=== PATIENT | male | born 2005 | race Two or more races ===

== ENCOUNTER 2024-09-20 12:54 | Outpatient (AMB) | payer OTHER, SELFPAY ==
--- NOTE | 2024-09-20 13:04 | MHC.PC.OV ---
Vital Signs 09/20/24 13:07 Height 5 ft 7.5 in Weight 308 lb BMI 47.5 BP 110/76 Blood Pressure Location Lt brachial Position Sitting Pulse 87 Pulse Source Pulse Oximeter Pulse Oximetry (%) 97 Oxygen Delivery Method Room Air Intake Visit Reasons: establish care Emergency Room Specialist Required: No Accompanied by: Self / Same As Patient Allergies No Known Allergies Allergy (Verified 09/20/24 13:24) Medication List - Last Reconciled 09/20/24 by ZACH Blackburn No Known Home Meds Tobacco use date assessed: 09/20/24 Dental Screening Dental Screen Date: 09/20/24 Did you have a dental visit in the last 12 months?: No Did you have a dental problem in the last 6 months where you did not have access to dental care?: No Was dental information given to patient?: No HPI establish care HPI Details Previous PCP: Procurement Professional Last visit: over year ago Last PE: probably 4 years Specialist:no OBGYN:n/a Past medical history: none reported Medications:no Family HX: DM father Problem: The patient is a 19-year-old male accompanied by his father Patient is presenting to establish care He is concerned about multiple skin areas Skin rashes on bilateral chest including around the nipple areas Patient reports that these areas are itchy at times Patient also concerned about strong odor/moisture coming from his groin areas On inspection: Red, scaly patches consistent with fungal rash on right and left chest underneath breasts folds Groins-Reading and moist and odorous- Discussed with patient about cleansing ear with soap and water and pat dry before applying nystatin powder to the groin areas Clotrimazole-betamethasone topical b.i.d. to chest and abdomen areas [facility] Family History (Updated 09/22/24 @ 01:44 by ZACH Blackburn) Father Diabetes Social History Housing: House Patient Tobacco Use Status: Never used Tobacco e-Cigarette/Vaping Use: Never Used Second Hand Smoke Exposure: No service: No Current occupational status: unemployed Current occupational exposures/hazards: No Cognitive needs: No Hearing needs: No Vision needs: No Questionnaire PHQ-9 Over the last 2 weeks, how often have you been bothered by any of the following problems? 1. Little interest or pleasure in doing things: several days 2. Feeling down, depressed, or hopeless: several days 3. Trouble falling or staying asleep, or sleeping too much: not at all 4. Feeling tired or having little energy: not at all 5. Poor appetite or overeating: not at all 6. Feeling bad about yourself - or that you are a failure or have let yourself or your family down: not at all 7. Trouble concentrating on things, such as reading the newspaper or watching television: not at all 8. Moving or speaking so slowly that other people could have noticed. Or the opposite - being so fidgety or restless that you have been moving around a lot more than usual: not at all 9. Thoughts that you would be better off or of hurting yourself in some way: not at all Total score: 2 Source: Developed by Drs. Kerwin Nathan, Eileen Stein, Festus Santamaria and colleagues, with an educational juan ramon from [employer]. Thrive Questionnaire Date Thrive assessed: 09/20/24 I am a: Patient What is your living situation today?: I have a steady place to live Within the past 12 months, did the food you bought not last and you didn't have the money to get more?: Never true Within the past 12 months, did you worry whether your food would run out before you got money to buy more?: Never true Do you have trouble paying for medicines?: No Do you have trouble getting transportation to medical appointments?: No Do you have trouble paying your heating and electricity bill?: No Do you have trouble taking care of your child, family member or friend?: No Do you have trouble with day-to-day activities such as bathing, preparing meals, shopping, managing finances, etc.?: No Are you currently unemployed and looking for a job?: Yes Are you interested in more education?: No Please select the resources that you would like help with: None Currently or been in a relationship where the following occur: No concerns reported THRIVE Score: 0 AUDIT C Alcohol Use Questionnaire (AUDIT-C) 1. How often do you have a drink containing alcohol?: Never 2. How many drinks containing alcohol do you have on a typical day when you are drinking?: 1 or 2 3. How often do you have six or more drinks on one occasion?: Never Total Score: 0 MARCIE-7 AMB Questionnaire MARCIE-7 Date MARCIE - 7 assessed: 09/20/24 Feeling nervous, anxious, or on edge: 0 = Not at all Not being able to stop or control worryin = Not at all Worrying too much about different things: 0 = Not at all Trouble relaxin = Not at all Being so restless that it is hard to sit still: 0 = Not at all Becoming easily annoyed or irritable: 1 = Several days Feeling afraid as if something awful might happen: 0 = Not at all Total MARCIE-7 score (0-4 normal; 5-9 mild; 10-14 moderate; 15-21 severe): 1 Source: Developed by Drs. Kerwin Nathan, Eileen Stein, Festus Santamaria and colleagues, with an educational juan ramon from [employer]. MARCIE-7 Assessment Billing MARCIE-7 Assessment Tool: MARCIE-7 Assessment 56772 Review of Systems Const Details: Denies chills, Denies fatigue, Denies fever(s), Denies headache(s) and Denies weakness HEENT Denies change in vision, Denies dizziness, Denies headache(s), Denies hearing loss, Denies nasal congestion, Denies sinus pain, Denies sinus pressure and Denies sore throat Card Denies chest pain, Denies lightheadedness, Denies dyspnea and Denies other (palpitations) Resp Denies cough, Denies dyspnea and Denies wheezing GI Denies abdominal pain, Denies melena, Denies hematochezia, Denies change in bowel habits, Denies dyspepsia and Denies nausea Denies hematuria and Denies dysuria Musc Denies abnormal gait, Denies myalgias, Denies arthralgias, Denies numbness and Denies tingling Skin/Breast Denies rash, Denies unusual bruising and Denies wounds Neuro Denies abnormal gait, Denies dizziness, Denies headache(s), Denies memory loss, Denies numbness, Denies Sensory deficit (Neuro), Denies tingling and Denies weakness Psych Denies anxiety, Denies depression and Denies memory loss Endo Denies cold intolerance, Denies fatigue, Denies heat intolerance, Denies polydipsia and Denies polyuria Dustin/Lymph Denies easy bleeding and Denies easy bruising Aller/Immun Denies wheezing Physical exam (Primary Care) Vital Signs: Last Vital Signs Pulse 87 09/20/24 13:07 BP 110/76 09/20/24 13:07 Pulse Ox 97 09/20/24 13:07 Oxygen Delivery Method Room Air 09/20/24 13:07 BMI result Body Mass Index 47.5 Tobacco/Smoking Status: Tobacco use Status Tobacco use date assessed 09/20/24 09/20/24 13:10 Patient Tobacco Use Status Never used Tobacco 09/20/24 13:10 e-Cigarette/Vaping Use Never Used 09/20/24 13:10 PHQ-9: PHQ-9 Score PHQ-9: Total score 2 09/20/24 13:32 Thrive Assessment: Date of Thrive Assessment Date Thrive assessed 09/20/24 09/20/24 13:10 Currently or been in a relationship where the following occur: No concerns reported Const Other: General: no acute distress, well developed, alert and awake Nutritional Appearance: well nourished Orientation/consciousness: patient oriented x3 HENMT Head: Yes normocephalic and Yes atraumatic Ears: hearing grossly normal bilaterally and TM's normal bilaterally General nose exam: Normal external nose present and Normal nares present Mouth: Normal oral and palatal mucosa present and moist mucous membranes Eyes Pupils: Equal, round and reactive pupils present and Pupil accommodation reflex normal EOM: EOMs intact bilaterally Neck Neck: Yes normal visual inspection, Yes no lymphadenopathy and Yes trachea midline Thyroid: Thyroid normal Lymphatic: no lymphadenopathy noted Resp Effort & Inspection: normal respiratory effort Auscultation: clear to auscultation bilaterally Cardio Rate: regular rate Rhythm: regular rhythm Heart sounds: S1 normal heart sound present, S2 normal heart sound present, no gallops, no murmurs and no rubs Bruits: no abdominal aortic bruits and no carotid bruits GI Palpation (GI): Abdomen large, rounded, soft and nontender to palpation Auscultation: normal bowel sounds General: Yes no CVA tenderness Back/Spine/Pelvis Back: no CVA tenderness Cervical Spine: cervical ROM normal and No Cervical spine tenderness Thoracic/Lumbar Spine: thoraco-lumbar ROM normal, No pain with thoraco-lumbar ROM, No thoracic spinal tenderness and No lumbar spinal tenderness Skin General: warm and dry. Normal skin color. Normal skin turgor See HPI Nails: normal Neuro General: patient oriented x3, gait normal Cranial nerves: Yes Equal, round and reactive pupils present Cognition (Neuro): normal cognition Gait exam (Neuro): Normal gait present Extrem General: Yes normal to inspection, No edema and No calf tenderness Psych Appearance: grossly normal Affect: normal affect Attitude: cooperative Thought process: Normal thought process present Coding Level of Care Code New Pt Level 3 (44900) Diagnoses Tinea corporis B35.4 Tinea cruris B35.6 Additional Codes MARCIE-7 Assessment Billing - MARCIE-7 Assessment Tool: MARCIE-7 Assessment 64617 ([id number]) Time Spent (min) 31 Assessment & Plan Assessment & Plan (1) Tinea corporis: Code(s): B35.4 - Tinea corporis Category: Medical Plan: Clotrimazole-betamethasone 1-0.05% 1 appl topical BID ordered to be applied to affected areas on chest and abdomen (2) Tinea cruris: Code(s): B35.6 - Tinea cruris Category: Medical Plan: Nystatin powder ordered for groin areas. Discussed with patient about cleansing with area with soap and water, pat dry before apply the nystatin powder Orders: Orders Lipid Panel 09/20/24 Z00.00 - Encounter for general adult medical examination without abnormal findings Glucose Fasting 09/20/24 Z00.00 - Encounter for general adult medical examination without abnormal findings Complete Blood Count Auto Diff 09/20/24 Z00.00 - Encounter for general adult medical examination without abnormal findings Comprehensive Fletcher. Panel Fast 09/20/24 Z00.00 - Encounter for general adult medical examination without abnormal findings Vitamin D 25-OH Total 09/20/24 Z00.00 - Encounter for general adult medical examination without abnormal findings UA CC w/rflx Micro + Cult 09/20/24 Z00.00 - Encounter for general adult medical examination without abnormal findings TSH reflex Free T4 09/20/24 Z00.00 - Encounter for general adult medical examination without abnormal findings Medications: New clotrimazole-betamethasone 1-0.05 % 1 appl topical BID 45 grams 3RF nystatin 1 appl topical BID 60 grams 3RF
[2024-09-20 13:07] VITALS: BP 110/76; PULSE 87; O2SAT 97; BMI 47.5
--- OUTSIDE RECORDS SUMMARY | 2024-09-20 13:49 | XMS_ITS | Data Portability ---
Author Organization [facility] [address] Address [address] [place] [address] Assessment No assessment recorded. Plan of Treatment Reminders Order Date Submit Date Provider Last Modified By Organization Details Last Modified Time Details Appointments None recorded. Lab rapid flu (A+B) 2021 [email or web address], [address] [place] [address], [id number], 15:42:41 Referral None recorded. Procedures None recorded. Surgeries None recorded. Imaging None recorded. Medication Orders oseltamivir [address] [facility][id number], [address] [place] [address], [address], 15:42:44 benzonatate [address] [id number], [address] [place], [address], 15:42:44 Patient TargetsNo targets recorded. Patient Instructions Encounter Date Encounter Id Patient Instructions Last Modified By Organization Details Last Modified Time 07/10/2022 [id number] influenza (flu): care instructions [email or web address] Not available 07/10/2022 15:42:41 Based on your Presentation and Exam you are being diagnosed with Influenza. Your rapid Flu test was POSITIVE Influenza is caused by a virus that is highly contagious. If you have any family member that have been exposed they typically will start to show symptoms in 48-72 hours. I am going to prescribe you Tamiflu - which has to be started within 48 hours to be effective. If it is started after that time it typically can cause GI symptoms. If family member show symptoms, remember that treatment has to be started within 48 hours. You are considered contagious for 5 Days after the start of the fever. You should isolate and not go to work, sports, events during this quarantine period. The following are my recommendations to help with your symptoms while your body fights this infection: 1. Take Ibuprofen or Tylenol if you do not have any allergies to these medications. If you take a blood thinner you should not take NSAIDS like Ibuprofen. These medication will help with the inflammation in your respiratory tract which should help the cough. 2. Do not take any decongestants at this time because this will dry out that tract too much. If you have a lot of nasal congestion you can try nasal decongestants, but I would not take them more than 5 days. 3. Use a humidifier or add a cup of water by your bed. Sometimes if our sleeping environment is too dry this can lead to cough 4. Salt Water Gargles 5. Saline nasal spray is helpful. 6. Would recommend taking a antihistamine to help with the congestion. 7. Clean Surfaces regularly and try to stay isolated from family members. I would be seen again if you develop any of the following. 1. Cough develops last longer than 3 weeks. 2. Develop shortness of breath or wheezing. 3. Severe Headache with vision changes 4. Stiff Neck 5. Fever does not reduce a few points with Ibuprofen or Tylenol. I would go immediately to the Emergency Room if you develop: 1. Chest Pain 2. Severe Shortness of breath 3. Coughing up Blood. Not available 07/10/2022 15:39:13 Reason for Referral None Reported. Results Created Date Observation Date Name Description Value Unit Range Abnormal Flag Note LastModifiedBy Organization Detail LastModifiedTime 07/10/20 22 07/10/2022 rapid flu (A+B) Unknown Analyte positi ve Not Available [facility] [address] [place] [address], [id number], 07/10/2022 14:52:41 07/10/20 22 07/10/2022 rapid flu (A+B) Unknown Analyte negati ve Not Available carol germain [address], [address], 07/10/2022 14:52:41 07/10/20 22 07/10/2022 rapid flu (A+B) Unknown Analyte Normal = Negati ve Not Available 2099carol germain [address], [address], 07/10/2022 14:52:41 07/10/20 22 07/10/2022 rapid flu (A+B) Unknown Analyte Normal = Negati ve Not Available 2099carol [address], [address], 07/10/2022 14:52:41 Result Notes None recorded. Problems No Known Problems Medical Equipment None Reported. Allergies No known drug allergies Medications Name Sig Start Date Stop Date Status Note LastModified by Organization Details LastModified Time benzonatate 200 mg capsule Take 1 capsule 3 times a day by oral route. 2021 active Not Available Not Available Not Avai lable ofloxacin 0.3 % ear drops INSTILL 10 DROPS TO AFFECTED EAR(S) 1 TIME PER DAY X7 DAYS FOR INFECTION 07/10 completed Not Available Not Available Not Available oseltamivir 75 mg capsule Take 1 capsule twice a day by oral route for 5 days. 2021 active Not Available Not Available Not Avai lable Vitals Date Recorded Body height Body mass index (BMI) Body mass index (BMI) Percentile per age and sex Body weight Body temperature Respiratory rate Heart rate Oxygen saturation Oxygen saturation in Arterial blood by Pulse oximetry Systolic blood pressure Diastolic blood pressure Provider Name and Address Organization Details Last Updated DateTime 2 170.18 cm 46.5 kg/m2 99 % 386629. 93 g 98 [degF] 20 /min 94 /min 96 % 96 % 135 mm[Hg] 82 mm[Hg] JOHN Michele [place] - [facility] 2 14:52:36 Social History Question Answer Notes LastModified by Organizat ion Details LastModified Time Tobacco Smoking Status Never Smoker JOHN portillo [place] - [facility] 07/10/2022 14:50:34 What Is Your Level Of Alcohol Consumption? None Information not available 07/10/2022 What Is Your Water Source? City Information not available 07/10/2022 What Is Your Heat Source? Other Information not available 07/10/2022 Have You Had Direct Contact, Or Contact During Intimacy, With Monkeypox Rash, Scabs, Or Body Fluids From A Person With Monkeypox? No Information not available 07/10/2022 Do You Use Any Illicit Or Recreational Drugs? No Information not available 07/10/2022 Have You Recently Traveled Abroad? No Information not available 07/10/2022 Do You Or Have You Ever Used Any Other Forms Of Tobacco Or Nicotine? No Information not available 07/10/2022 Sex: Unknown Functional Status None recorded. Mental Status None recorded. Family History Relationship Description Onset Age of this Age Resolved Age Notes LastModified by Organization Details LastModified Time Father No current problems or disability Not available 14:50:25 Mother No current problems or disability Not available 14:50:25 Medical History No medical history recorded. Past Encounters Encounter ID Performer Location Encounter Start Date Encounter Closed Date Diagnosis/Indication Diagnosis SNOMED-CT Code Diagnosis ICD10 Code [id number] [facility] [address] [place] [address] 01/20/2022 16:25:33 01/20/2022 16:49:16 [id number] [facility] [address] [address] [place] [address] 07/10/2022 11:54:18 07/10/2022 15:50:10 Influenza caused by Influenza A virus 295495784 J09.X2 Health Concerns Section Related Observation LastModified by Organization Detai ls LastModified Time None Recorded Concern Status LastModified by Organization Details LastModified Time None Recorded Advance Directives Directive None Recorded Payers Encounter Date Sequence Insurance Name Policy Number Policy Vázquez Covered Member ID Vázquez Member ID Guarantor Name 01/20/2022 1 [facility] [id number] Ryan Hurst [id number] Ryan Hurst 07/10/2022 1 [facility] [id number] Ryan Hurst [id number] Ryan Hurst Notes Date Note Type Note Provider Name and Address Organization Details Recorded Time 07/10/2022 text/html Sinus ComplaintsReported bypatient.Location:faci al pain Associated Symptoms:nasal discharge from nostrils;fever/chills;s ore throat;Post nasal drip;cough Onset/Timing:initially started 2days ago Quality:worsening Severity:moderate Context:no recent upper respiratory infection;recent sick contacts Alleviating factors:OTC meds ibuprophenNotes:Goes to [facility]. Having congestion, headache, fatigue, bodyaches. Probably has had exposure to covid and flu. [facility] OSE[facility] [address] [place], [address], [place] - [facility] 07/10/2022 15:45:53
== END 2024-09-20 13:52 | disposition home or self-care (01) ==
PROVIDERS: PCP Pediatrics
DX: B35.4 Tinea corporis (principal); B35.6 Tinea cruris

== ENCOUNTER → 2024-09-20 12:54 | Outpatient (BNVA) | payer OTHER, SELFPAY | PROVIDERS: PCP Pediatrics | DX: B35.4 Tinea corporis (principal); B35.6 Tinea cruris | CPT/HCPCS: 96127 ==

== ENCOUNTER 2024-10-05 12:01 | Outpatient (REF) | payer OTHER, SELFPAY ==
[2024-10-05 12:59] LABS: MANUAL DIFF FLAG NO
[2024-10-05 13:00] LABS: Appearance Urine Turbid; Color Urine Dark Yellow; Glucose Urine UA Negative (Negative); Leukocyte Esterase Urine Negative (Negative); Nitrite Urine Negative (Negative); Specific Gravity - Urine >= 1.030 (1.005-1.025); Urine Blood Negative (Negative); Urine Ketones Trace mg/dL (Negative); Urine Protein Trace mg/dL (Neg-Trace)
[2024-10-05 13:01] LABS: Basophils Percent Auto 0.6 % (0-2); Eosinophils Absolute Auto 0.1 X10*3/uL (0.0-0.4); Eosinophils Percent Auto 1.7 % (0-4); Hematocrit 47.1 % (42.0-52.0); Hemoglobin 15.1 g/dl (14.0-18.0); Imm Gran Abs Auto 0.01 X10*3/uL (0.00-0.03); Imm Gran Pct Auto 0.2 % (0.0-0.4); Lymphocytes Absolute Auto 3.1 X10*3/uL (1.2-4.9); Lymphocytes Percent Auto 45.9 % (20-40); Mean Corpuscular HGB Conc 32.1 g/dl (31.0-36.0); Mean Corpuscular Volume 84.1 fL (80.0-98.0); Mean Platelet Volume 11.9 fL (9.4-12.4); Monocytes Absolute Auto 0.5 X10*3/uL (0.1-1.2); Monocytes Percent Auto 7.7 % (2-11); Neutrophils Absolute Auto 2.9 x10*3/uL (2.0-8.3); Neutrophils Percent Auto 43.9 % (45-73); Platelet Count 190 X10*3/uL (160-400); Red Cell Distribution Width 13.1 % (11.0-16.0); White Blood Count 6.6 X10*3/uL (4.8-10.8)
[2024-10-05 13:20] LABS: Alanine Aminotransferase 58 U/L (0-40); Albumin Level 4.3 g/dL (3.5-5.0); Anion Gap 13 (12-20); Aspartate Amino Transferase 34 U/L (5-37); Bilirubin Total 0.8 mg/dL (0.0-1.0); Blood Urea Nitrogen 14 mg/dL (9-16); Carbon Dioxide 26 mmol/L (22-29); Chloride 104 mmol/L (96-108); Cholesterol 182 mg/dL (<200); Estimated Glomerular Filt Rate > 60; Glucose Fasting 90 mg/dL (60-99); HDL Cholesterol 44 mg/dL (>40); LDL Cholesterol Calculated 121 mg/dL (<100); Potassium 5.1 mmol/L (3.3-5.1); Sodium 138 mmol/L (135-145); Total Protein 8.4 g/dL (6.5-8.0); Triglycerides 89 mg/dL (<150)
--- OUTSIDE RECORDS SUMMARY | 2024-10-05 13:50 | XMS_ITS | Data Portability ---
Author Organization [facility], [address] Address [address] [place] [address] Assessment No assessment recorded. Plan of Treatment Reminders Order Date Submit Date Provider Last Modified By Organization Details Last Modified Time Details Appointments None recorded. Lab rapid flu (A+B) 2021 [email or web address] [facility], [address] [place] [address], [phone], 15:42:41 Referral None recorded. Procedures None recorded. Surgeries None recorded. Imaging None recorded. Medication Orders oseltamivir 75 mg capsule 2021 [facility] #[id number], [address] [place] [address], [address], 15:42:44 benzonatate 200 mg capsule 2021 [facility]2339, [address] [place], [address], 15:42:44 Patient TargetsNo targets recorded. Patient Instructions Encounter Date Encounter Id Patient Instructions Last Modified By Organization Details Last Modified Time 07/10/2022 [id number] influenza (flu): care instructions [email or web address] Not available 07/10/2022 15:42:41 Based on your [...] Shortness of breath 3. Coughing up Blood. [email or web address] Not available 07/10/2022 15:39:13 Reason for Referral None Reported. Results Created Date Observation Date Name Description Value Unit Range Abnormal Flag Note LastModifiedBy Organization Detail LastModifiedTime 07/10/20 22 07/10/2022 rapid flu (A+B) Unknown Analyte positi ve Not Available [facility] [address] [place] [address], [phone], 07/10/2022 14:52:41 07/10/20 22 07/10/2022 rapid flu (A+B) Unknown Analyte negati ve Not Available carol germain [address], [address], 07/10/2022 14:52:41 07/10/20 22 07/10/2022 rapid flu (A+B) Unknown Analyte Normal = Negati ve Not Available 2099carol germain [address], [address], 07/10/2022 14:52:41 07/10/20 22 07/10/2022 rapid flu (A+B) Unknown Analyte Normal = Negati ve Not Available 2099carol [address], [address], 07/10/2022 14:52:41 Result Notes None recorded. Problems [...] 2 170.18 cm 46.5 kg/m2 99 % 867475. 93 g 98 [degF] 20 /min 94 [...] SNOMED-CT Code Diagnosis ICD10 Code Diagnosis Note [id number] [facility] [address] [place] [address] 01/20/2022 16:25:33 01/20/2022 16:49:16 [id number] [facility] [address] [facility] [address] [place] [address] 07/10/2022 11:54:18 07/10/2022 15:50:10 Influenza caused by Influenza A virus [id number] J09.X2 Health Concerns Section Related Observation LastModified by Organization Detai ls LastModified Time None Recorded Concern Status LastModified by Organization Details LastModified Time None Recorded Advance Directives Directive None Recorded Payers Encounter Date Sequence Insurance Name Policy Number Policy Vázquez Covered Member ID Vázquez Member ID Guarantor Name 01/20/2022 1 [facility] [id number] Ryan Hurst [id number] Ryan Hurst 07/10/2022 1 [facility] [id number] Ryan Hurst [id number] Ryan Hurst Notes Date Note Type Note Provider Name and Address Organization Details Recorded Time 07/10/2022 text/html Sinus ComplaintsReported bypatient.Location:faci al pain Associated Symptoms:nasal discharge from nostrils;fever/chills;s ore throat;Post nasal drip;cough Onset/Timing:initially started 2days ago Quality:worsening Severity:moderate Context:no recent upper respiratory infection;recent sick contacts Alleviating factors:OTC meds ibuprophenNotes:Goes to [facility]. Having congestion, headache, fatigue, bodyaches. Probably has had exposure to covid and flu. [facility] OSEGUERA [address] [place], [address], [place] - [facility] 07/10/2022 15:45:53
[2024-10-05 14:03] LABS: TSH reflex Free T4 2.87 uIU/mL (0.32-4.0); Vitamin D 25-OH Total 16.7 ng/mL (>30)
[2024-10-05 15:50] LABS: Alkaline Phosphatase 84 U/L (39-117)
== END 2024-10-05 12:02 | disposition home or self-care (01) ==
LOC: HO.10HDL 12:01
DX: Z00.00 Encounter for general adult medical examination without abnormal findings (principal); Z13.6 Encounter for screening for cardiovascular disorders
CPT/HCPCS: 36415; 80053; 80061; 81003; 82306; 84443; 85025

== ENCOUNTER 2024-10-15 14:16 | Outpatient (AMB) | payer OTHER, SELFPAY ==
[2024-10-15 14:27] VITALS: BP 122/80; PULSE 84; TEMP 36.3; O2SAT 97; BMI 47.7
--- NOTE | 2024-10-15 14:27 | A.OFFPC_ITS ---
Vital Signs 10/15/24 14:27 Height 5 ft 7.5 in Weight 309 lb 6 oz BMI 47.7 BP 122/80 Blood Pressure Location Lt brachial Position Sitting Pulse 84 Pulse Source Pulse Oximeter Temp 97.3 F Temp Source Temporal Artery Scan Pulse Oximetry (%) 97 Oxygen Delivery Method Room Air Intake Visit Reasons: Annual Exam Intake Note: Patient is here today for a physical. Coil Strapper Required: No Accompanied by: Father Allergies No Known Allergies Allergy (Verified 10/15/24 15:10) Medication List - Last Reconciled 10/15/24 by ZACH Blackburn clotrimazole-betamethasone 1-0.05 % 1 appl topical BID nystatin 1 appl topical BID Tobacco use date assessed: 09/20/24 Dental Screening Dental Screen Date: 09/20/24 HPI Annual Exam HPI Details The patient is a 19-year-old male presenting for annual physical. He is accompanied by his father Dentist: no-will make an appointment Eye: Snellen: Right: Left: Corrected vision: no-will make an appointment STI screening: Colonoscopy:n/a Pap Smer:n/a PHQ-9: Flu:decline COVID: decline Tdap: up to date Diet: regular Exercise: no left ear perforation: history of tubes will get vit D3 2000 iu otc [facility] Medical History (Updated 10/15/24 @ 22:10 by ZACH Blackburn) History of ear infections as a child Surgical History History of placement of ear tubes Family History Father Diabetes Social History Housing: House Patient Tobacco Use Status: Never used Tobacco e-Cigarette/Vaping Use: Never Used Second Hand Smoke Exposure: No service: No Current occupational status: unemployed Current occupational exposures/hazards: No Cognitive needs: No Hearing needs: No Vision needs: No Questionnaire Thrive Questionnaire Date Thrive assessed: 10/15/24 I am a: Patient What is your living situation today?: I have a steady place to live Within the past 12 months, did the food you bought not last and you didn't have the money to get more?: Never true Within the past 12 months, did you worry whether your food would run out before you got money to buy more?: Never true Do you have trouble paying for medicines?: No Do you have trouble getting transportation to medical appointments?: No Do you have trouble paying your heating and electricity bill?: No Do you have trouble taking care of your child, family member or friend?: No Do you have trouble with day-to-day activities such as bathing, preparing meals, shopping, managing finances, etc.?: No Are you currently unemployed and looking for a job?: Yes Are you interested in more education?: No Please select the resources that you would like help with: None Currently or been in a relationship where the following occur: No concerns reported THRIVE Score: 0 AUDIT C Alcohol Use Questionnaire (AUDIT-C) 1. How often do you have a drink containing alcohol?: Never 2. How many drinks containing alcohol do you have on a typical day when you are drinking?: 1 or 2 3. How often do you have six or more drinks on one occasion?: Never Total Score: 0 MARCIE-7 AMB Questionnaire MARCIE-7 Date MARCIE - 7 assessed: 10/15/24 Feeling nervous, anxious, or on edge: 0 = Not at all Not being able to stop or control worryin = Not at all Worrying too much about different things: 0 = Not at all Trouble relaxin = Not at all Being so restless that it is hard to sit still: 0 = Not at all Becoming easily annoyed or irritable: 1 = Several days Feeling afraid as if something awful might happen: 0 = Not at all Total MARCIE-7 score (0-4 normal; 5-9 mild; 10-14 moderate; 15-21 severe): 1 Source: Developed by Drs. Kerwin Nathan, Eileen Stein, Festus Santamaria and colleagues, with an educational juan ramon from [employer]. Review of Systems Const Denies headache(s) Eyes Denies loss of vision ENT Denies vertigo, Denies dizziness, Denies headache(s) and Denies sore throat Card Denies chest pain, Denies leg edema and Denies lightheadedness Resp Denies cough, Denies hemoptysis and Denies wheezing GI Denies abdominal pain, Denies melena, Denies constipation, Denies diarrhea and Denies vomiting Denies dysuria, Denies urinary frequency and Denies urinary urgency Musc Denies arthralgias, Denies joint swelling, Denies numbness and Denies tingling Skin/Breast Reports pruritus, Reports erythema (underneath skin folds-improved significantly since last seen) and Reports rash (underneath skin folds-improved significantly) Neuro Denies Abnormal speech present, Denies behavioral changes, Denies vertigo, Denies dizziness, Denies headache(s), Denies loss of vision, Denies memory loss, Denies numbness and Denies tingling Psych Denies anxiety, Denies behavioral changes, Denies depression, Denies memory loss and Denies panic attacks Dustin/Lymph Denies easy bleeding and Denies easy bruising Aller/Immun Denies wheezing Physical exam (Primary Care) Vital Signs: Last Vital Signs Temp 97.3 F 10/15/24 14:27 Pulse 84 10/15/24 14:27 BP 122/8 L 10/15/24 14:27 Pulse Ox 97 10/15/24 14:27 Oxygen Delivery Method Room Air 10/15/24 14:27 BMI result Body Mass Index 47.7 Tobacco/Smoking Status: Tobacco use Status Tobacco use date assessed 09/20/24 10/15/24 14:28 Patient Tobacco Use Status Never used Tobacco 10/15/24 14:28 e-Cigarette/Vaping Use Never Used 10/15/24 14:28 Thrive Assessment: Date of Thrive Assessment Date Thrive assessed 10/15/24 10/15/24 14:28 Currently or been in a relationship where the following occur: No concerns reported Const General: healthy appearing, no acute distress, alert and awake Nutritional Appearance: well nourished Orientation/consciousness: oriented to person, oriented to place and oriented to time HENMT Ears: TM normal on the left and TM abnormal perforated (hx of tubes) General nose exam: Normal nasal mucous membranes and turbinates present Eyes Conjunctivae: conjunctivae normal Sclerae: sclerae normal Pupils: Equal, round and reactive pupils present Neck Neck: Yes no lymphadenopathy and Yes no JVD Thyroid: Thyroid normal Carotids: no bruits Resp Effort & Inspection: normal respiratory effort and not tachypneic Auscultation: no crackles, no rales, no rhonchi and no wheezes Cardio Rate: regular rate Rhythm: regular rhythm Heart sounds: no murmurs and normal S1 and S2 GI Palpation (GI): Soft to palpation, nontender, no hepatomegaly and no splenomegaly Auscultation: normal bowel sounds Skin General skin exam: no rashes or lesions noted and dry skin Neuro General: oriented to person, oriented to place and oriented to time Cranial nerves: Yes Equal, round and reactive pupils present Speech: No Abnormal speech present Gait exam (Neuro): Normal gait present Motor exam (neuro): no tremor noted Extrem Right upper extremity: full ROM Left upper extremity: full ROM Right lower extremity: full ROM; no edema Left lower extremity: full ROM; no edema Psych Mental Status: mental status grossly normal Speech and movement: Normal speech and movement present Affect: normal affect Attitude: cooperative Thought process: Normal thought process present Results Reviewed Results Reviewed: Laboratory Tests 10/05/24 12:06 WBC 6.6 RBC 5.60 Hgb 15.1 Hct 47.1 Plt Count 190 Neut % (Auto) 43.9 L Lymph % (Auto) 45.9 H Sodium 138 Potassium 5.1 Chloride 104 BUN 14 Creatinine 0.90 Estimated GFR > 60 Fasting Glucose 90 AST 34 ALT 58 H Alkaline Phosphatase 84 Triglycerides 89 Cholesterol 182 LDL Cholesterol, Calc 121 H HDL Cholesterol 44 25-OH Vitamin D Total 16.7 L TSH 2.87 Urine Color Dark Yellow Urine Appearance Turbid Urine pH 6.0 Ur Specific [place] >= 1.030 H Urine Protein Trace Urine Glucose (UA) Negative Urine Ketones Trace Urine Blood Negative Urine Nitrite Negative Ur Leukocyte Esterase Negative Coding Level of Care Code Est Pt Prev Care 18-39y([id number]) Diagnoses Annual physical exam Z00.00 Elevated ALT measurement R74.01 Pure hypercholesterolemia E78.00 Tinea cruris B35.6 Tinea corporis B35.4 Morbid obesity with BMI of 45.0-49.9, adult E66.01; Z68.42 Vitamin D deficiency E55.9 Time Spent (min) 35 Assessment & Plan Assessment & Plan (1) Annual physical exam: Code(s): Z00.00 - Encounter for general adult medical examination without abnormal findings Category: Medical Plan: Preventative guidelines and recent blood work were reviewed with the patient. The patient is not up to date on dental/eye exam evaluation-Discussed with the patient and his father about the recommendations. Declines flu/covid vaccines. (2) Elevated ALT measurement: Code(s): R74.01 - Elevation of levels of liver transaminase levels Category: Medical Plan: AST 34/ALT 58 Avoid tylenol, alcohol, discussed with the patient that his elevated cholesterol could be the contributor for the elevation of his ALT. Cutting down on high cholesterol foods, losing weight and increasing his activity levels can benefit the liver function (3) Pure hypercholesterolemia: Code(s): E78.00 - Pure hypercholesterolemia, unspecified Category: Medical Plan: Encouraged to exercise for at least 30 minutes a day/5 days a week Healthy eating discussed. Encouraged to eat fruits/vegetables, protein- fish/baked chicken, and to avoid salty/fried foods, sweets, caffeine and carbohydrates. Encouraged to increase water intake 6-8 glasses a day (4) Tinea cruris: Code(s): B35.6 - Tinea cruris Category: Medical Plan: Nystatin powder ordered for groin areas. Discussed with patient about cleansing with area with soap and water, pat dry before apply the nystatin powder (5) Tinea corporis: Code(s): B35.4 - Tinea corporis Category: Medical Plan: Clotrimazole-betamethasone 1-0.05% 1 appl topical BID ordered to be applied to affected areas on chest and abdomen (6) Morbid obesity with BMI of 45.0-49.9, adult: Code(s): E66.01 - Morbid (severe) obesity due to excess calories; Z68.42 - Body mass index [BMI] 45.0-49.9, adult Category: Medical Plan: Discussed macronutrients and cutting simple and flour based carbs from the diet and increasing vegetables and good proteins and fats. Discussed exercising 3-5 days a week for at least 30 minutes to help boost metabolism and maintain strong muscles to maintain weight. (7) Vitamin D deficiency: Code(s): E55.9 - Vitamin D deficiency, unspecified Category: Medical Plan: Recommended vitamin D3 2000 iu-the patient father said he will purchase this at the pharmacy otc. Plan Plans for the patient to return in 4 months and repeat blood work prior to visit Orders: Orders TSH reflex Free T4 4 Months E78.00 - Pure hypercholesterolemia, unspecified, R74.01 - Elevation of levels of liver transaminase levels UA CC w/rflx Micro + Cult 4 Months E78.00 - Pure hypercholesterolemia, unspecified, R74.01 - Elevation of levels of liver transaminase levels Vitamin D 25-OH Total 4 Months E78.00 - Pure hypercholesterolemia, unspecified, R74.01 - Elevation of levels of liver transaminase levels Glucose Fasting 4 Months E78.00 - Pure hypercholesterolemia, unspecified, R74.01 - Elevation of levels of liver transaminase levels Comprehensive [place]. Panel Fast 4 Months E78.00 - Pure hypercholesterolemia, unspecified, R74.01 - Elevation of levels of liver transaminase levels Lipid Panel 4 Months E78.00 - Pure hypercholesterolemia, unspecified, R74.01 - Elevation of levels of liver transaminase levels Medications: Refilled clotrimazole-betamethasone 1-0.05 % 1 appl topical BID 45 grams 3RF nystatin 1 appl topical BID 60 grams 3RF
--- OUTSIDE RECORDS SUMMARY | 2024-10-15 16:42 | XMS_ITS ---
Author Name [facility] Organization Unknown Care Team Organization Name Specialty Phone Email Start Date End [facility]
== END 2024-10-15 15:43 | disposition home or self-care (01) ==
LOC: HO.HMCH 14:17
DX: Z00.00 Encounter for general adult medical examination without abnormal findings (principal); E66.01 Morbid (severe) obesity due to excess calories; Z68.42 Body mass index [BMI] 45.0-49.9, adult; E78.00 Pure hypercholesterolemia, unspecified; R74.01 Elevation of levels of liver transaminase levels; B35.6 Tinea cruris; B35.4 Tinea corporis; E55.9 Vitamin D deficiency, unspecified

== ENCOUNTER 2024-11-12 15:08 | Outpatient (AMB) | payer OTHER, SELFPAY ==
--- NOTE | 2024-11-12 15:11 | MHC.PC.OV ---
Vital Signs 11/12/24 15:12 Height 5 ft 7.5 in Weight 307 lb BMI 47.4 BP 130/84 Blood Pressure Location Lt brachial Position Sitting Pulse 97 Pulse Source Pulse Oximeter Temp 96.9 F Temp Source Temporal Artery Scan Pulse Oximetry (%) 97 Oxygen Delivery Method Room Air Intake Visit Reasons: right ear pain Intake Note: Patient is here to follow up on Right ear pain/ discomfort started on 11/03/24. Respiratory Therapist Assistant Required: No Leather Sponger: Not Required per policy Accompanied by: Self / Same As Patient Allergies No Known Allergies Allergy (Verified 11/12/24 15:20) Medication List - Last Reconciled 11/12/24 by ZACH Blackburn clotrimazole-betamethasone 1-0.05 % 1 appl topical BID nystatin 1 appl topical BID Tobacco use date assessed: 11/12/24 Dental Screening Dental Screen Date: 09/20/24 HPI right ear pain HPI Details The patient is a 19-year-old male presenting with ear discomfort and suspicion of ear infection. On November 03, the patient developed right ear pain after using a cotton swab due to an itch. This discomfort was attributed to aggressive or deep use. The pain persisted until November 05, then changed to ongoing discomfort. The patient suspects his actions may have exacerbated the condition, leading to concerns about a potential ear infection. No other symptoms are reported, and no additional medical history is indicated. [facility] Medical History (Updated 11/12/24 @ 15:44 by ZACH Blackburn) History of ear infections as a child Surgical History History of placement of ear tubes Family History Father Diabetes Social History Housing: House Patient Tobacco Use Status: Never used Tobacco e-Cigarette/Vaping Use: Never Used Second Hand Smoke Exposure: No service: No Current occupational status: unemployed Current occupational exposures/hazards: No Cognitive needs: No Hearing needs: No Vision needs: No Questionnaire Thrive Questionnaire Date Thrive assessed: 10/15/24 MARCIE-7 AMB Questionnaire MARCIE-7 Date MARCIE - 7 assessed: 10/15/24 Source: Developed by Drs. Kerwin Nathan, Eileen Stein, Festus Santamaria and colleagues, with an educational juan ramon from [employer]. Review of Systems ENT Denies ear discharge, Reports otalgia, Denies nasal congestion, Denies post nasal drip, Denies tinnitus and Denies sinus pressure Card Denies chest pain, Denies irregular heart rhythm, Denies lightheadedness and Denies dyspnea Resp Denies chest congestion, Denies cough and Denies dyspnea Physical exam (Primary Care) Vital Signs: Last Vital Signs Temp 96.9 F 11/12/24 15:12 Pulse 97 11/12/24 15:12 BP 130/84 11/12/24 15:12 Pulse Ox 97 11/12/24 15:12 Oxygen Delivery Method Room Air 11/12/24 15:12 BMI result Body Mass Index 47.4 Tobacco/Smoking Status: Tobacco use Status Tobacco use date assessed 11/12/24 11/12/24 15:17 Patient Tobacco Use Status Never used Tobacco 11/12/24 15:17 e-Cigarette/Vaping Use Never Used 11/12/24 15:17 Thrive Assessment: Date of Thrive Assessment Date Thrive assessed 10/15/24 11/12/24 15:17 Const Other: - Ears- Right ear canal shows redness and irritation without involvement of the tympanic membrane; presence of some dried wax in the left ear noted. HENMT Ears: TM normal on the left and TM abnormal perforated (chronic) Resp Auscultation: clear to auscultation bilaterally Cardio Rate: regular rate Rhythm: regular rhythm Heart sounds: S1 normal heart sound present, S2 normal heart sound present, no gallops, no murmurs and no rubs Coding Level of Care Code Est Pt Level 3 (30797) Diagnoses Acute otitis externa of right ear, unspecified type H60.501 Chronicity: acute Laterality: right Otitis externa type: unspecified type Time Spent (min) 28 Assessment & Plan Assessment & Plan (1) External otitis: Code(s): H60.90 - Unspecified otitis externa, unspecified ear Category: Medical Qualifiers: Chronicity: acute Laterality: right Otitis externa type: unspecified type Qualified Code(s): H60.501 - Unspecified acute noninfective otitis externa, right ear Plan: I discussed the diagnosis of otitis externa with the patient, explaining the likely cause being mechanical irritation from using a cotton swab. We reviewed the treatment plan involving ciprofloxacin-dexamethasone ear drops, emphasizing the importance of adherence to dosing and course completion to prevent recurrence or complication. The patient was informed about the expected benefits and potential risks, stressing the need for monitoring symptoms. I provided guidance on the importance of avoiding mechanical irritation in the future. The follow-up for further evaluation and assessment if symptom persist or not improving Medications: New ciprofloxacin-dexamethasone 0.3-0.1 % 4 drps otic (ear) right BID 7.5 mL 0RF 7 days H60.90 - Unspecified otitis externa, unspecified ear
[2024-11-12 15:12] VITALS: BP 130/84; PULSE 97; TEMP 36.1; O2SAT 97; BMI 47.4
--- OUTSIDE RECORDS SUMMARY | 2024-11-12 17:41 | XMS_ITS | Data Portability ---
Author Organization [facility] [address] Address [address] [place] [address] Assessment No assessment recorded. Plan of Treatment Reminders Order Date Submit Date Provider Last Modified By Organization Details Last Modified Time Details Appointments None recorded. Lab rapid flu (A+B) 2021 [email or web address], [address] [place] [address], [phone], 15:42:41 Referral None recorded. Procedures None recorded. Surgeries None recorded. Imaging None recorded. Medication Orders oseltamivir 75 mg capsule 2021 [id number], [address] [place] [address], [id number], 15:42:44 benzonatate 200 mg capsule 2021 [id number], [address] [place], [phone], 15:42:44 Patient TargetsNo targets recorded. Patient Instructions Encounter Date Encounter Id Patient Instructions Last Modified By Organization Details Last Modified Time 07/10/2022 [id number] influenza (flu): care instructions [email or web address] Not available 07/10/2022 15:42:41 Based on your [...] Shortness of breath 3. Coughing up Blood. [email or web address] Not available 07/10/2022 15:39:13 Reason for Referral None Reported. Results Created Date Observation Date Name Description Value Unit Range Abnormal Flag Note LastModifiedBy Organization Detail LastModifiedTime 07/10/20 22 07/10/2022 rapid flu (A+B) Unknown Analyte positi ve Not Available [facility] [address] [place] [address], [phone], 07/10/2022 14:52:41 07/10/20 22 07/10/2022 rapid flu (A+B) Unknown Analyte negati ve Not Available carol germain [address], [address], 07/10/2022 14:52:41 07/10/20 22 07/10/2022 rapid flu (A+B) Unknown Analyte Normal = Negati ve Not Available 2099carol germain [address], [address], 07/10/2022 14:52:41 07/10/20 22 07/10/2022 rapid flu (A+B) Unknown Analyte Normal = Negati ve Not Available 2099carol [address], [phone], 07/10/2022 14:52:41 Result Notes None recorded. Problems [...] 2 170.18 cm 46.5 kg/m2 99 % 284801. 93 g 98 [degF] 20 /min 94 [...] SNOMED-CT Code Diagnosis ICD10 Code Diagnosis Note [id number] [facility] [address] [place] [address] 01/20/2022 16:25:33 01/20/2022 16:49:16 [id number] [facility] O[facility] [address] [place] [address] 07/10/2022 11:54:18 07/10/2022 15:50:10 Influenza caused by Influenza A virus [id number] J09.X2 Health Concerns Section Related Observation LastModified by Organization Detai ls LastModified Time None Recorded Concern Status LastModified by Organization Details LastModified Time None Recorded Advance Directives Directive None Recorded Payers Encounter Date Sequence Insurance Name Policy Number Policy Vázquez Covered Member ID Vázquez Member ID Guarantor Name 01/20/2022 1 [facility] [id number] Ryan Hurst [id number] Ryan Hurst 07/10/2022 1 [facility] [id number] Ryan Hurst [id number] Ryan Hurst Notes Date Note Type Note Provider Name and Address Organization Details Recorded Time 07/10/2022 text/html Sinus ComplaintsReported bypatient.Location:[facility] pain Associated Symptoms:nasal discharge from nostrils;fever/chills;s ore throat;Post nasal drip;cough Onset/Timing:initially started 2days ago Quality:worsening Severity:moderate Context:no recent upper respiratory infection;recent sick contacts Alleviating factors:OTC meds ibuprophenNotes:Goes to [facility]. Having congestion, headache, fatigue, bodyaches. Probably has had exposure to covid and flu. [facility] OSEGUERA [address] [place], [address], [place] - [facility] 07/10/2022 15:45:53
== END 2024-11-12 15:50 | disposition home or self-care (01) ==
LOC: HO.HMCH 15:08
DX: H60.501 Unspecified acute noninfective otitis externa, right ear (principal)

== ENCOUNTER → 2024-11-12 15:08 | Outpatient (BNVA) | payer OTHER, SELFPAY | DX: Z13.89 Encounter for screening for other disorder (principal) ==

== ENCOUNTER 2025-02-18 15:28 | Outpatient (AMB) | payer OTHER, SELFPAY ==
[2025-02-18 15:36] VITALS: BP 128/74; PULSE 92; RESP 16; TEMP 36.6; O2SAT 98; BMI 49.7
--- NOTE | 2025-02-18 15:36 | MHC.PC.OV ---
Vital Signs 02/18/25 15:36 Height 5 ft 7.25 in Weight 320 lb BMI 49.7 BP 128/74 Blood Pressure Location Lt brachial Position Sitting Respiration 16 Pulse 92 Pulse Source Pulse Oximeter Temp 97.9 F Temp Source Oral Pulse Oximetry (%) 98 Oxygen Delivery Method Room Air Intake Visit Reasons: hld/elevated ALT/vit D def Clerical Adjuster Required: No Accompanied by: Self / Same As Patient Allergies No Known Allergies Allergy (Verified 11/12/24 15:20) Medication List - Last Reconciled 02/18/25 by ZACH Blackburn ciprofloxacin-dexamethasone 0.3-0.1 % 4 drps otic (ear) right BID 7 days clotrimazole-betamethasone 1-0.05 % 1 appl topical BID nystatin 1 appl topical BID Tobacco use date assessed: 02/18/25 Dental Screening Dental Screen Date: 02/18/25 Did you have a dental visit in the last 12 months?: No Did you have a dental problem in the last 6 months where you did not have access to dental care?: No Was dental information given to patient?: No HPI hld/elevated ALT/vit D def HPI Details The patient is a 19-year-old male presenting for a follow-up on dietary habits and vitamin D supplementation. The patient reports inconsistent dietary habits, primarily consuming Bengali, Ross, and soul foods, with a preference for rice and meat. He acknowledges a lack of vegetable and fruit intake, citing difficulty with the texture and taste of healthier options. The patient has been taking pxhm-ehd-jfntzet vitamin D supplements but admits to forgetting doses occasionally. He plans to set reminders to improve adherence. He is currently seeking employment and has an upcoming interview for a physically active job, which he hopes will help improve his overall health. [facility] Medical History History of ear infections as a child Surgical History History of placement of ear tubes Family History Father Diabetes Social History Housing: House Patient Tobacco Use Status: Never used Tobacco e-Cigarette/Vaping Use: Never Used Second Hand Smoke Exposure: No service: No Current occupational status: unemployed Current occupational exposures/hazards: No Cognitive needs: No Hearing needs: No Vision needs: No Questionnaire Thrive Questionnaire Date Thrive assessed: 02/18/25 I am a: Patient What is your living situation today?: I have a steady place to live Within the past 12 months, did the food you bought not last and you didn't have the money to get more?: Never true Within the past 12 months, did you worry whether your food would run out before you got money to buy more?: Never true Do you have trouble paying for medicines?: No Do you have trouble getting transportation to medical appointments?: No Do you have trouble paying your heating and electricity bill?: No Do you have trouble taking care of your child, family member or friend?: No Do you have trouble with day-to-day activities such as bathing, preparing meals, shopping, managing finances, etc.?: No Are you currently unemployed and looking for a job?: Yes Are you interested in more education?: No Please select the resources that you would like help with: None Currently or been in a relationship where the following occur: No concerns reported THRIVE Score: 0 MARCIE-7 AMB Questionnaire MARCIE-7 Date MARCIE - 7 assessed: 02/18/25 Source: Developed by Drs. Kerwin Nathan, Eileen Stein, Festus Santamaria and colleagues, with an educational juan ramon from [employer]. Review of Systems Const Denies body aches, Denies chills, Denies fever(s), Denies headache(s) and Denies poor appetite Eyes Reports no additional complaints ENT Denies dysphagia, Denies dizziness, Denies headache(s) and Denies odynophagia Card Denies chest pain, Denies syncope, Denies edema, Denies irregular heart rhythm, Denies lightheadedness and Denies dyspnea Resp Denies cough and Denies dyspnea GI Denies abdominal pain, Denies constipation, Denies dysphagia, Denies diarrhea, Denies nausea, Denies odynophagia and Denies vomiting Reports no additional complaints Musc Reports no additional complaints and Denies abnormal gait Skin/Breast Reports system reviewed and no additional complaints, except as documented Neuro Denies abnormal gait, Denies dizziness, Denies syncope and Denies headache(s) Psych Reports no additional complaints Physical exam (Primary Care) Vital Signs: Last Vital Signs Temp 97.9 F 02/18/25 15:36 Pulse 92 02/18/25 15:36 Resp 16 02/18/25 15:36 BP 128/74 02/18/25 15:36 Pulse Ox 98 02/18/25 15:36 Oxygen Delivery Method Room Air 02/18/25 15:36 BMI result Body Mass Index 49.7 Tobacco/Smoking Status: Tobacco use Status Tobacco use date assessed 02/18/25 02/18/25 15:40 Patient Tobacco Use Status Never used Tobacco 02/18/25 15:40 e-Cigarette/Vaping Use Never Used 02/18/25 15:40 Thrive Assessment: Date of Thrive Assessment Date Thrive assessed 02/18/25 02/18/25 15:40 Currently or been in a relationship where the following occur: No concerns reported Const General: cooperative, healthy appearing, comfortable and no acute distress Orientation/consciousness: patient oriented x3 HENMT Head: Yes normocephalic Ears: hearing grossly normal bilaterally General nose exam: Normal external nose present Eyes General: appearance normal, both eyes and all related structures Conjunctivae: conjunctivae normal Neck Neck: Yes full ROM and Yes no lymphadenopathy Resp Effort & Inspection: normal respiratory effort Auscultation: clear to auscultation bilaterally, no crackles, no rales, no rhonchi and no wheezes Cardio Rate: regular rate Rhythm: regular rhythm GI Inspection: Yes obesity Palpation (GI): Soft to palpation and nontender Auscultation: normal bowel sounds General: Yes no CVA tenderness Back/Spine/Pelvis Back: no CVA tenderness Skin General skin exam: no rashes or lesions noted Neuro General: patient oriented x3 Gait exam (Neuro): Normal gait present Extrem General: Yes normal to inspection, Yes full ROM and No edema Psych Affect: normal affect Attitude: cooperative Insight: Good insight present (Psych) Judgement: Good judgement present (Psych) Coding Level of Care Code Est Pt Level 3 (29773) Diagnoses Elevated ALT measurement R74.01 Pure hypercholesterolemia E78.00 Tinea cruris B35.6 Tinea corporis B35.4 Morbid obesity with BMI of 45.0-49.9, adult E66.01; Z68.42 Vitamin D deficiency E55.9 Time Spent (min) 36 Assessment & Plan Assessment & Plan (1) Elevated ALT measurement: Code(s): R74.01 - Elevation of levels of liver transaminase levels Category: Medical Plan: AST 34/ALT 58 Avoid tylenol, alcohol, discussed with the patient that his elevated cholesterol could be the contributor for the elevation of his ALT. Cutting down on high cholesterol foods, losing weight and increasing his activity levels can benefit the liver function (2) Pure hypercholesterolemia: Code(s): E78.00 - Pure hypercholesterolemia, unspecified Category: Medical Plan: Encouraged to exercise for at least 30 minutes a day/5 days a week Healthy eating discussed. Encouraged to eat fruits/vegetables, protein-fish/baked chicken, and to avoid salty/fried foods, sweets, caffeine and carbohydrates. Encouraged to increase water intake 6-8 glasses a day (3) Tinea cruris: Code(s): B35.6 - Tinea cruris Category: Medical Plan: Nystatin powder ordered for groin areas. Discussed with patient about cleansing with area with soap and water, pat dry before apply the nystatin powder (4) Tinea corporis: Code(s): B35.4 - Tinea corporis Category: Medical Plan: Clotrimazole-betamethasone 1-0.05% 1 appl topical BID ordered to be applied to affected areas on chest and abdomen (5) Morbid obesity with BMI of 45.0-49.9, adult: Code(s): E66.01 - Morbid (severe) obesity due to excess calories; Z68.42 - Body mass index [BMI] 45.0-49.9, adult Category: Medical Plan: Discussed macronutrients and cutting simple and flour based carbs from the diet and increasing vegetables and good proteins and fats. Discussed exercising 3-5 days a week for at least 30 minutes to help boost metabolism and maintain strong muscles to maintain weight. (6) Vitamin D deficiency: Code(s): E55.9 - Vitamin D deficiency, unspecified Category: Medical Plan: Continue vitamin-D 3 2000 IU OTC Plan Encouraged the patient to complete blood work as soon as possible Medications: Refilled nystatin 1 appl topical BID 60 grams 3RF
--- OUTSIDE RECORDS SUMMARY | 2025-02-18 16:00 | XMS_ITS ---
Author Name [facility] Organization Unknown Care Team Organization Name Specialty Phone Email Start Date End [facility]
== END 2025-02-18 16:07 | disposition home or self-care (01) ==
LOC: HO.HMCH 15:29
DX: R74.01 Elevation of levels of liver transaminase levels (principal); E78.00 Pure hypercholesterolemia, unspecified; E66.01 Morbid (severe) obesity due to excess calories; Z68.42 Body mass index [BMI] 45.0-49.9, adult; B35.6 Tinea cruris; B35.4 Tinea corporis; E55.9 Vitamin D deficiency, unspecified

== ENCOUNTER 2025-06-10 14:59 | Outpatient (AMB) | payer OTHER, SELFPAY ==
--- NOTE | 2025-06-10 15:16 | MHC.PC.OV ---
Vital Signs 06/10/25 15:17 Height 5 ft 7.25 in Weight 316 lb BMI 49.1 BP 126/86 Blood Pressure Location Lt brachial Position Sitting Pulse 79 Pulse Source Pulse Oximeter Temp 97.3 F Temp Source Temporal Artery Scan Pulse Oximetry (%) 98 Oxygen Delivery Method Room Air Intake Visit Reasons: R ear pain thinks it's blocked Intake Note: Patient complains of Possible right ear pain/ blockage. Drug Room Operator Required: No Script Coordinator: Present Accompanied by: Father Allergies No Known Allergies Allergy (Verified 06/10/25 15:17) Medication List - Last Reconciled 06/10/25 by Carlos Briceno MD ciprofloxacin-dexamethasone 0.3-0.1 % 4 drps otic (ear) right BID 7 days clotrimazole-betamethasone 1-0.05 % 1 appl topical BID nystatin 1 appl topical BID Tobacco use date assessed: 06/10/25 Dental Screening Dental Screen Date: 02/18/25 HPI HPI Comments History of Present Illness Details The patient is a 20-year-old male with PMH of otitis media as a kid requiring tympanostomy tubes, otitis externa presenting with a sensation of blockage in the right ear. He denies pain but reports some change in his hearing and had yellowish discharge from the ear last night. A few weeks ago, he was seen for ear pain and was prescribed ear drops, which he used a couple of times before discontinuing them. The patient has a history of ear problems since childhood, including recurrent ear infections that necessitated the placement of tympanostomy tubes, which were later surgically removed. He admits to using cotton swabs to clean the outer part of his ear. He denies any nasal congestion or ringing in the ears. [facility] Medical History History of ear infections as a child Surgical History History of placement of ear tubes Family History Father Diabetes Social History (Updated 06/10/25 @ 15:20 by YAMILET Hayden) Housing: House Alcohol intake: current Alcohol intake frequency: a few times a month Patient Tobacco Use Status: Never used Tobacco e-Cigarette/Vaping Use: Never Used Second Hand Smoke Exposure: No service: No Current occupational status: unemployed Current occupational exposures/hazards: No Cognitive needs: No Hearing needs: No Vision needs: No Questionnaire Thrive Questionnaire Date Thrive assessed: 09/19/24 I am a: Patient What is your living situation today?: I have a steady place to live Within the past 12 months, did the food you bought not last and you didn't have the money to get more?: Never true Within the past 12 months, did you worry whether your food would run out before you got money to buy more?: Never true Do you have trouble paying for medicines?: No Do you have trouble getting transportation to medical appointments?: No Do you have trouble paying your heating and electricity bill?: No Do you have trouble taking care of your child, family member or friend?: No Do you have trouble with day-to-day activities such as bathing, preparing meals, shopping, managing finances, etc.?: No Are you currently unemployed and looking for a job?: Yes Are you interested in more education?: No Please select the resources that you would like help with: None Currently or been in a relationship where the following occur: No concerns reported THRIVE Score: 0 MARCIE-7 AMB Questionnaire MARCIE-7 Date MARCIE - 7 assessed: 02/18/25 Source: Developed by Drs. Kerwin Nathan, Eileen Stein, Festus Santamaria and colleagues, with an educational juan ramon from [employer]. Review of Systems Const Details: As per HPI. Physical exam (Primary Care) Vital Signs: Last Vital Signs Temp 97.3 F 06/10/25 15:17 Pulse 79 06/10/25 15:17 BP 126/86 06/10/25 15:17 Pulse Ox 98 06/10/25 15:17 Oxygen Delivery Method Room Air 06/10/25 15:17 BMI result Body Mass Index 49.1 Tobacco/Smoking Status: Tobacco use Status Tobacco use date assessed 06/10/25 06/10/25 15:24 Patient Tobacco Use Status Never used Tobacco 06/10/25 15:24 e-Cigarette/Vaping Use Never Used 06/10/25 15:24 Thrive Assessment: Date of Thrive Assessment Date Thrive assessed 09/19/24 06/10/25 15:24 Currently or been in a relationship where the following occur: No concerns reported Const Other: Pertinent findings are in BOLD GENERAL APPEARANCE NAD, activity normal for age, well developed/ well nourished, no cyanosis, pallor, or diaphoresis. EYES lids/conjunctiva normal. EARS/NOSE/THROAT Mucous membranes moist, nares normal, lips/teeth normal uvula midline without oral pharyngeal erythema. No lymphangitis/lymphedema. Left ear: cerumen impaction. Right ear: redness in ear canal and potential perforated tympanic membrane. HEAD/NECK normocephalic atraumatic, no facial trauma, neck is supple. RESPIRATORY respiratory effort normal, speaks in full sentences, no tripod position, no accessory muscle use. Lungs clear to auscultation without rhonchi, wheezes, rales CARDIAC Regular rate and rhythm, no edema. ABDOMINAL Soft, ND/NT. No evidence of fluid wave. No pulsatile masses on exam, rebound tenderness, Renteria sign or pain over Mcburney's point. MUSCLES/EXTREMITIES No abnormal range of motion, no swelling. SKIN Warm, pink and dry. No rashes, dermatoses, petechiae or lesions. NEUROLOGICAL Speech is clear and appropriate. Normal level of consciousness. Gait and coordination are normal. 5/5 strength in all extremities. PSYCH Normal mood and affect. Judgement/competence is appropriate Office Procedures Cerumen Removal From which ear canal was the cerumen removed: left Removal: irrigation, otoscope w/curette and cerumen loop/spoon Notes: patient tolerated procedure well, no complications and ear canal clear 09250-Ery Irrigation/Lavage Coding Level of Care Code Est Pt Level 4 (11753) Diagnoses Perforation of right tympanic membrane H72.91 Laterality: right Impacted cerumen of left ear H61.22 Laterality: left CPT Codes Office Procedure - CPT: 93800-Gtz Irrigation/Lavage ([id number]) Time Spent (min) 30 Assessment & Plan Assessment & Plan (1) Perforated tympanic membrane: Code(s): H72.90 - Unspecified perforation of tympanic membrane, unspecified ear Category: Medical Qualifiers: Laterality: right Qualified Code(s): H72.91 - Unspecified perforation of tympanic membrane, right ear Plan: - The patient's symptoms of aural fullness, discharge, and hearing changes are likely explained by a small perforation in the right tympanic membrane noted on exam. - No acute infection was visualized. - Ear lavage is contraindicated due to the suspected perforation. - The patient will be referred to an ENT specialist for further evaluation. - He was advised to continue using his previously prescribed ear drops in both ears. - He will follow up in one month. - Return precautions were given, including to return for worsening pain, fevers, or chills. (2) Cerumen impaction: Code(s): H61.20 - Impacted cerumen, unspecified ear Category: Medical Qualifiers: Laterality: left Qualified Code(s): H61.22 - Impacted cerumen, left ear Plan: - Some cerumen was noted in the left ear canal. - A successful ear lavage was performed in the office, with removal of some cerumen. - The patient was advised to continue using his prescribed ear drops in the left ear as well. Plan I discussed with the patient that his symptoms in the right ear were likely due to a small perforation in his tympanic membrane. I explained that I would not flush the right ear because of this finding, but that we would proceed with flushing the left ear, which had some cerumen. I recommended a referral to an ENT specialist for further evaluation of the right ear, noting that while there may not be a specific intervention, a specialist opinion is warranted given his history. I instructed him to continue using his prescribed ear drops in both ears for now and to schedule a follow-up visit in one month. We also discussed return precautions, advising him to seek care if he develops fever, chills, or worsening pain, or if he faces a significant delay in seeing the ENT. Orders: Referrals Ear/Nose/Throat Referral H72.90 - Unspecified perforation of tympanic membrane, unspecified ear
[2025-06-10 15:17] VITALS: BP 126/86; PULSE 79; TEMP 36.3; O2SAT 98; BMI 49.1
--- OUTSIDE RECORDS SUMMARY | 2025-06-10 17:12 | XMS_ITS | Data Portability ---
Author Organization [facility], [address] Address [address] [place] [address] Assessment No assessment recorded. Plan of Treatment Reminders Order Date Submit Date Provider Last Modified By Organization Details Last Modified Time Details Appointments None recorded. Lab rapid flu (A+B) [email or web address], [address], 15:42:41 Referral None recorded. Procedures None recorded. Surgeries None recorded. Imaging None recorded. Medication Orders oseltamivir 75 mg capsule 2021 [facility]/Pharmacy #[id number], [address] [place] [address], [address], 15:42:44 benzonatate 200 mg capsule 2021 [facility]/Pharmacy #[id number], [address] [place] [address], [address], 15:42:44 Patient TargetsNo targets recorded. Patient Instructions Encounter Date Encounter Id Patient Instructions Last Modified By Organization Details Last Modified Time 07/10/2022 [id number] influenza (flu): care instructions [email or web address] Not available 07/10/2022 15:42:41 Based on your [...] Shortness of breath 3. Coughing up Blood. [email or web address] Not available 07/10/2022 15:39:13 Reason for Referral None Reported. Results Created Date Observation Date Name Description Value Unit Range Abnormal Flag Note LastModifiedBy Organization Detail LastModifiedTime 07/10/20 22 07/10/2022 rapid flu (A+B) Unknown Analyte positi ve Not Available [facility] [address] [place] [address], [place], [address], 07/10/2022 14:52:41 07/10/2007/10/2022 rapid flu (A+B) Unknown Analyte negati ve Not Available _[facility] [address], [address], 07/10/2022 14:52:41 07/10/20 22 07/10/2022 rapid flu (A+B) Unknown Analyte Normal = Negati ve Not Available 2099carol germain [address], [address], 07/10/2022 14:52:41 07/10/20 22 07/10/2022 rapid flu (A+B) Unknown Analyte Normal = Negati ve Not Available [facility] [address], [address], 07/10/2022 14:52:41 Result Notes None recorded. Problems [...] mass index (BMI) Body mass index (BMI) [Percentile] Per age and sex Body weight Body temperature Respiratory rate Heart rate Oxygen saturation Oxygen saturation in Arterial blood by Pulse oximetry Systolic And Diastolic Provider Name and Address Organization Details Last Updated DateTime 2 170.18 cm 46.5 kg/m2 99 % 104764. 93 g 98 [degF] 20 /min 94 /min 96 % 96 % 135/82 mm[Hg] JOHN Michele PA - [facility] 2 14:52:36 Social History Question Answer Notes LastModified by Organizat ion Details LastModified Time Tobacco Smoking Status Never Smoker JOHN portillo [place] - [facility] 07/10/2022 14:50:34 What Is Your Water Source? City Information not available 07/10/2022 What Is Your Heat Source? Other Information not available 07/10/2022 Have You Had Direct Contact, Or Contact During Intimacy, With Monkeypox Rash, Scabs, Or Body Fluids From A Person With Monkeypox? No Information not available 07/10/2022 Have You Recently Traveled Abroad? No Information not available 07/10/2022 Sex: Unknown Functional Status Question Answer Note LastModified by Organizat ion Details LastModified Time Do you use any illicit or recreational drugs? No Information not available 07/10/2022 Do you or have you ever used any other forms of tobacco or nicotine? No Information not available 07/10/2022 What is your level of alcohol consumption? None Information not available 07/10/2022 Mental Status None recorded. Family History Relationship [...] Diagnosis SNOMED-CT Code Diagnosis ICD10 Code Diagnosis IMO Codes Diagnosis Note [id number] [facility] [address] [place] [address] 01/20/2022 16:25:33 01/20/2022 16:49:16 [id number] [facility] [address] [address] [place] [address] 07/10/2022 11:54:18 07/10/2022 15:50:10 Influenza caused by Influenza A virus [id number] J09.X2 Health Concerns Section Related Observation LastModified by Organization Detai ls LastModified Time None Recorded Concern Status LastModified by Organization Details LastModified Time None Recorded Advance Directives Directive None Recorded Payers Insurance Date Sequence Insurance Name Policy Number Policy Vázquez Covered Member ID Vázquez Member ID Guarantor Name 07/10/2022 1 [facility] [id number] Ryan Hurst [id number] Ryan Hurst Notes Date Note Type Note Provider Name and Address Organization Details Recorded Time 07/10/2022 text/html Sinus ComplaintsReported by PatientHPIFor location, patient reportsfacial pain. For associated symptoms, patient reportsnasal discharge from __ nostrils,fever/chills,s ore throat,post nasal drip, andcough. For quality, patient reportsworsening. For context, patient reportsrecent sick contactsbut reportsno recent upper respiratory infection. For onset/timing, patient reportsinitially started 2days ago. For severity, patient reportsmoderate. For alleviating factors, patient reportsotc meds ibuprophen.[facility]es [facility]. Having congestion, headache, fatigue, bodyaches. Probably has had exposure to covid and flu. [facility] OSEGUERA [address] [place], [address], [place] - [facility] 07/10/2022 15:45:53
== END 2025-06-10 15:51 | disposition home or self-care (01) ==
LOC: HO.HMCH 15:00
PROVIDERS: Visit Provider Internal Medicine
DX: H72.91 Unspecified perforation of tympanic membrane, right ear (principal); H61.22 Impacted cerumen, left ear

== ENCOUNTER → 2025-06-10 14:59 | Outpatient (BNVA) | payer OTHER, SELFPAY | PROVIDERS: Visit Provider Internal Medicine | DX: H61.22 Impacted cerumen, left ear (principal); H72.91 Unspecified perforation of tympanic membrane, right ear | CPT/HCPCS: 69210 ==